=== PATIENT | female | born 1985 | race Caucasian/White ===

== ENCOUNTER → 2025-04-15 | Day surgery (SDC) | payer MEDICAID ==
[~2025-04-15] MED LIST: Dexamethasone 4 MG/ML 5 ML MDV ONE; EPINEPHrine 1 MG/ML SDV ONE; Ketamine HCL/NACL, ISO-OSM 50 MG/5 ML Syringe ONE; Midazolam 1 MG/ML 2 ML SDV ONE; Ondansetron 4 MG/2 ML SDV ONE; Propofol 200 MG/20 ML SDV ONE; Sodium Chloride 0.9% 10 ML Syringe FLUSH PRN; Sodium Chloride 0.9% 10 ML Syringe FLUSH SCH; dexmedeTOMIDine HCl 200 MCG/2 ML SDV ONE; fentaNYL 250 MCG/5 ML SDV ONE; propofoL 1,000 MG/100 ML 100 ML ONE
[2025-04-15] MEDS: Lactated Ringers 1,000 ML IV SCH (08:25)
[2025-04-15 09:00] LABS: BUPRENORPHINE SCREEN,URINE NEGATIVE (CUTOFF=10); METHADONE SCREEN, URINE NEGATIVE (CUTOFF=200); METHAMPHETAMINES SCREEN, URINE PRESUMPTIVE POSITIVE (CUTOFF=500); OXYCODONE SCREEN,URINE NEGATIVE (CUT0FF=100); THC SCREEN,URINE 20 NG/ML NEGATIVE (CUTOFF=50)
[2025-04-15 09:12] LABS: AMPHETAMINES SCREEN, URINE PRESUMPTIVE POSITIVE (CUTOFF=500)
== END ==
LOC: JD.SDS 08:12
PROVIDERS: ATTEND Obstetrics & Gynecology
DX: Z53.8 Procedure and treatment not carried out for other reasons (principal); F17.210 Nicotine dependence, cigarettes, uncomplicated; Z91.09 Other allergy status, other than to drugs and biological substances
CPT/HCPCS: 80306; 81025; A9270; J7120; J0169; J0665; J1100; J2003; J2250; J2405; J2704; J3010; J3490

== ENCOUNTER 2025-04-29 07:44 | Day surgery (SDC) | payer MEDICAID ==
[~2025-04-29 07:44] MED LIST changes: -Dexamethasone 4 MG/ML 5 ML MDV ONE; -EPINEPHrine 1 MG/ML SDV ONE; -Ketamine HCL/NACL, ISO-OSM 50 MG/5 ML Syringe ONE; -Midazolam 1 MG/ML 2 ML SDV ONE; -Ondansetron 4 MG/2 ML SDV ONE; -Propofol 200 MG/20 ML SDV ONE; -dexmedeTOMIDine HCl 200 MCG/2 ML SDV ONE; -fentaNYL 250 MCG/5 ML SDV ONE; -propofoL 1,000 MG/100 ML 100 ML ONE
[2025-04-29] MEDS: Lactated Ringers 1,000 ML IV SCH (08:00)
[2025-04-29 08:14] LABS: BUPRENORPHINE SCREEN,URINE NEGATIVE (CUTOFF=10); METHADONE SCREEN, URINE NEGATIVE (CUTOFF=200); METHAMPHETAMINES SCREEN, URINE NEGATIVE (CUTOFF=500); OXYCODONE SCREEN,URINE NEGATIVE (CUT0FF=100); THC SCREEN,URINE 20 NG/ML PRESUMPTIVE POSITIVE (CUTOFF=50)
[2025-04-29 08:18] LABS: AMPHETAMINES SCREEN, URINE NEGATIVE (CUTOFF=500)
[2025-04-29] MEDS ORDERED: propofoL 1,000 MG/100 ML 100 ML ONE (09:52)
[2025-04-29] MEDS ORDERED: Ketamine HCL/NACL, ISO-OSM 50 MG/5 ML Syringe ONE (09:53)
[2025-04-29] MEDS ORDERED: Propofol 200 MG/20 ML SDV ONE ×2 (09:53→12:58)
[2025-04-29] MEDS ORDERED: fentaNYL 250 MCG/5 ML SDV ONE (09:53)
[2025-04-29] MEDS ORDERED: Midazolam 1 MG/ML 2 ML SDV ONE (09:54)
[2025-04-29] MEDS ORDERED: Dexamethasone 4 MG/ML 5 ML MDV ONE (09:55)
[2025-04-29] MEDS ORDERED: Ondansetron 4 MG/2 ML SDV ONE (09:55)
[2025-04-29] MEDS ORDERED: dexmedeTOMIDine HCl 200 MCG/2 ML SDV ONE (10:02)
[2025-04-29] MEDS ORDERED: ePHEDrine 50 MG/ML SDV ONE (11:17)
[2025-04-29] MEDS ORDERED: fentaNYL 100 MCG/2 ML SDV IVPUSH PRN (11:46)
[2025-04-29] MEDS ORDERED: Lactated Ringers 1,000 ML ONE (11:50)
[2025-04-29] MEDS: EPINEPHrine 1 MG/ML SDV ONE (11:55)
[2025-04-29] MEDS ORDERED: EPINEPHrine 1 MG/ML SDV ONE (11:58)
[2025-04-29] MEDS ORDERED: Ketorolac 30 MG/ML SDV ONE (13:04)
[2025-04-29] MEDS: Ondansetron 4 MG/2 ML SDV IVPUSH PRN (14:36)
== END 2025-04-29 15:50 | disposition home or self-care (01) ==
LOC: JD.SDS 07:44
PROVIDERS: ATTEND Obstetrics & Gynecology
DX: N80.03 Adenomyosis of the uterus (principal); I10 Essential (primary) hypertension; F17.210 Nicotine dependence, cigarettes, uncomplicated; Z79.899 Other long term (current) drug therapy
CPT/HCPCS: 57288; 58552; 80306; A9270; J0169; J0665; J0690; J1100; J1885; J2003; J2250; J2405; J2704; J3010; J7120; 00944; J1171; J3490